=== PATIENT | female | born 2000 | race African-American/Black ===

== ENCOUNTER 2022-08-26 14:44 | Emergency (ER) | payer MEDICAID ==
[~2022-08-26] VITALS: Ht 177.8 cm; Wt 188.0 kg
--- NOTE | 2022-08-26 15:05 | ED Abdominal Pain ---
General Chief Complaint: Abdominal/GI Problems Stated Complaint: ABD AND LOWER BACK PAIN Nursing Triage Note: PT AMB TO ED BY POV WITH C/O LOWER BACK AND ABD PAIN. PT REPORTS SHE IS 17 WEEKS . PAIN BEGAN LAST WEEK, DENIES INJURY. PT ALSO C/O URGENCY, DENIES BLOOD IN URINE OR PAIN WITH URINATION. Source of Information: Patient Exam Limitations: No Limitations History of Present Illness Date Seen by Provider: Aug 26, 2022 Time Seen by Provider: 14:46 Initial Comments 22-year-old female G1, P0 at 17 weeks gestational age by first trimester ultrasound coming in due to suprapubic discomfort, urinary urgency, and lower back discomfort. Symptoms started about a week ago, denies any dysuria, hematuria, fever, vaginal bleeding, diarrhea, nausea, vomiting, body aches, or any other concerns. She is from [place], does not have an OB here. She will be working here in town for another week. Otherwise denying any other acute complaints. She had Tylenol roughly 4 hours ago which did help. Denies ever having pain like this before. Denies any trauma to her back, did not twisted unusually, and no lifting accidents. Allergies and Home Medications Allergies Coded Allergies: No Known Drug Allergies (Unverified , 08/26/22) Patient Home Medication List Home Medication List Reviewed: Yes Review of Systems Review of Systems Constitutional: no symptoms reported EENTM: No Symptoms Reported Respiratory: No Symptoms Reported Cardiovascular: No Symptoms Reported Gastrointestinal: See HPI Genitourinary: See HPI Musculoskeletal: no symptoms reported Skin: no symptoms reported Psychiatric/Neurological: No Symptoms Reported Endocrine: No Symptoms Reported Hematologic/Lymphatic: No Symptoms Reported Past [id number] Hx Patient Social History Substance use?: No Past Medical History Surgery/Hospitalization HX: hernia repair Surgeries: Yes Expected Date of Delivery: Jan 18, 2023 Physical Exam Vital Signs Vital Signs - First Documented 08/26/22 14:54 Temp 36.5 Pulse 93 Resp 18 B/P (MAP) 142/80 (100) Pulse Ox 100 O2 Delivery Room Air Capillary Refill : Less Than 3 Seconds Height/Weight/BMI Height: '" Weight: lbs. oz. kg; 59.00 BMI Method: General Appearance: WD/WN, no apparent distress HEENT: PERRL/EOMI, normal ENT inspection, pharynx normal Neck: non-tender, full range of motion, supple, normal inspection Respiratory: chest non-tender, lungs clear, normal breath sounds, no respiratory distress, no accessory muscle use Cardiovascular: regular rate, rhythm, no edema, no murmur Gastrointestinal: normal bowel sounds, non tender, soft; No distended, No guarding, No rebound Extremities: normal range of motion, non-tender, normal inspection, no pedal edema, no calf tenderness, normal capillary refill Back: normal inspection, no CVA tenderness, no vertebral tenderness Neurologic/Psychiatric: no motor/sensory deficits, alert, normal mood/affect Skin: normal color, warm/dry Progress/Results/Core Measures Results/Orders Lab Results Laboratory Tests Test 08/26/22 15:10 Range/Units White Blood Count 8.3 4.3-11.0 10^3/uL Red Blood Count 5.09 3.80-5.11 10^6/uL Hemoglobin 9.6 L 11.5-16.0 g/dL Hematocrit 31 L 35-52 % Mean Corpuscular Volume 60 L 80-99 fL Mean Corpuscular Hemoglobin 19 L 25-34 pg Mean Corpuscular Hemoglobin Concent 31 L 32-36 g/dL Red Cell Distribution Width 21.4 H 10.0-14.5 % Platelet Count 541 H 130-400 10^3/uL Mean Platelet Volume 9.7 9.0-12.2 fL Neutrophils (%) (Auto) 61 42-75 % Lymphocytes (%) (Auto) 30 12-44 % Monocytes (%) (Auto) 7 0-12 % Eosinophils (%) (Auto) 2 0-10 % Basophils (%) (Auto) 1 0-10 % Neutrophils # (Auto) 5.0 1.8-7.8 X 10^3 Lymphocytes # (Auto) 2.5 1.0-4.0 X 10^3 Monocytes # (Auto) 0.6 0.0-1.0 X 10^3 Eosinophils # (Auto) 0.2 0.0-0.3 10^3/uL Basophils # (Auto) 0.1 0.0-0.1 10^3/uL Sodium Level 139 135-145 MMOL/L Potassium Level 3.8 3.6-5.0 MMOL/L Chloride Level 107 98-107 MMOL/L Carbon Dioxide Level 27 21-32 MMOL/L Anion Gap 5 5-14 MMOL/L Blood Urea Nitrogen 8 7-18 MG/DL Creatinine 0.79 0.60-1.30 MG/DL Estimat Glomerular Filtration Rate 110 BUN/Creatinine Ratio 10 Glucose Level 84 70-105 MG/DL Calcium Level 8.7 8.5-10.1 MG/DL Corrected Calcium 8.9 8.5-10.1 MG/DL Magnesium Level 1.9 1.6-2.4 MG/DL Total Bilirubin 0.5 0.1-1.0 MG/DL Aspartate Amino Transf (AST/SGOT) 13 5-34 U/L Alanine Aminotransferase (ALT/SGPT) 11 0-55 U/L Alkaline Phosphatase 51 40-136 U/L Total Protein 7.5 6.4-8.2 GM/DL Albumin 3.7 3.2-4.5 GM/DL Lipase 25 8-78 U/L My Orders Orders - PETER VARGAS MD Cbc With Automated Diff (08/26/22 15:00) Comprehensive Metabolic Panel (08/26/22 15:00) Lipase (08/26/22 15:00) Magnesium (08/26/22 15:00) Ua Culture If Indicated (08/26/22 15:00) Vital Signs/I&O 08/26/22 14:54 Temp 36.5 Pulse 93 Resp 18 B/P (MAP) 142/80 (100) Pulse Ox 100 O2 Delivery Room Air Blood Pressure Mean: 100 Progress Progress Note : Progress Note 22-year-old female with above history coming in due to left flank/lower back and lower abdominal discomfort. ABCs were intact and vitals were stable on presentation. White blood cell count was normal, creatinine normal, LFTs normal. I ordered a urinalysis, unfortunately she was unable to urinate. She is having a lot of discomfort with her IV, and also is having problems at work, and needs to get back to work. She states that she needs to go to [place], potentially clock out, and then come back to the ER. I discussed with her , if she has a kidney infection, that could be potentially life- threatening. She states that she will come back. We will have her sign AMA paperwork, but expect her to come back for her urinalysis. She is well- appearing, no real flank tenderness, no signs of systemic illness, and on repeat abdominal exam is reassuring. I do not think she has any life-threatening issues at this time, potentially does have a UTI. Clinically does not have pyelonephritis given the lack of fever and systemic symptoms. Departure Impression Primary Impression: Back pain Qualified Codes: M54.50 - Low back pain, unspecified Additional Impressions: Qualified Codes: Z3A.17 - 17 weeks gestation of Urinary urgency Disposition: AGAINST MEDICAL ADVICE Condition: Stable Departure-Patient Inst. Decision time for Depature: 16:20 Referrals: NO,LOCAL PHYSICIAN (PCP/Family) Primary Care Physician Add. Discharge Instructions: The low back pain could be musculoskeletal from versus it could be an infection or something else. You are anemic today, but your lab work otherwise looked okay. We would of course like a urinalysis as soon as possible to be sure you do not have an infection, this can become very serious if this is not treated right away during . Please come back to the ER as soon as able to get the urinalysis done and repeat evaluation. Otherwise for pain, take 1000 g of Tylenol every 6 hours. Work/School Note: Work Release Form Date Seen in the Emergency Department: Aug 26, 2022 Return to Work: Aug 27, 2022 Restrictions: No Restrictions PETER VARGAS MD Aug 26, 2022 15:05
[2022-08-26 15:37] LABS: ALBUMIN 3.7 GM/DL (3.2-4.5); BILIRUBIN,TOTAL 0.5 MG/DL (0.1-1.0); CALCIUM 8.7 MG/DL (8.5-10.1); CREATININE SERUM 0.79 MG/DL (0.60-1.30); MAGNESIUM 1.9 MG/DL (1.6-2.4); POTASSIUM 3.8 MMOL/L (3.6-5.0); TOTAL PROTEIN 7.5 GM/DL (6.4-8.2)
[2022-08-26 15:50] LABS: HEMATOCRIT 31 % (35-52); HEMOGLOBIN 9.6 g/dL (11.5-16.0); MEAN CORPUSCULAR HEMOGLOBIN 19 pg (25-34); MEAN CORPUSCULAR HGB CONC 31 g/dL (32-36); MEAN CORPUSCULAR VOLUME 60 fL (80-99); MEAN PLATELET VOLUME 9.7 fL (9.0-12.2); NEUTROPHILS % (AUTO) 61 % (42-75); PLATELET COUNT 541 10^3/uL (130-400); WHITE BLOOD COUNT 8.3 10^3/uL (4.3-11.0)
[2022-08-26 15:51] LABS: BASOPHILS # (AUTO) 0.1 10^3/uL (0.0-0.1); BASOPHILS % (AUTO) 1 % (0-10); EOSINOPHILS # (AUTO) 0.2 10^3/uL (0.0-0.3); EOSINOPHILS % (AUTO) 2 % (0-10); LYMPHOCYTES # (AUTO) 2.5 X 10^3 (1.0-4.0); LYMPHOCYTES % (AUTO) 30 % (12-44); MONOCYTES # (AUTO) 0.6 X 10^3 (0.0-1.0); MONOCYTES % (AUTO) 7 % (0-12)
[2022-08-26 16:20] VITALS: BP 146/78
== END 2022-08-26 16:20 | disposition left against medical advice (07) ==
LOC: ER 14:48
DX: O99.891 Other specified diseases and conditions complicating pregnancy (principal); M54.50 Low back pain, unspecified; R39.15 Urgency of urination; Z3A.17 17 weeks gestation of pregnancy
CPT/HCPCS: 36415; 80053; 83690; 83735; 85025